=== PATIENT | female | born 2005 | race Caucasian/White ===

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

== ENCOUNTER 2023-02-11 22:15 | Emergency (ER) | payer MEDICAID ==
[~2023-02-11] VITALS: Ht 162.6 cm; Wt 76.9 kg
[~2023-02-11 22:15] MED LIST changes: +TOPUD MT
[2023-02-11] MEDS ORDERED: IBUPROFEN 600MG TABLET PO ONE (23:30)
[2023-02-11] MEDS ORDERED: NAPR500T7 MT (23:31)
[2023-02-11 23:44] VITALS: BP 128/84
== END 2023-02-11 23:45 | disposition home or self-care (01) ==
LOC: ER 22:15
DX: R51.9 Headache, unspecified (principal); J45.909 Unspecified asthma, uncomplicated
CPT/HCPCS: 81025; 99282

== ENCOUNTER 2023-04-11 14:08 | Emergency (ER) | payer MEDICAID ==
[~2023-04-11] VITALS: Ht 162.6 cm; Wt 61.0 kg
[~2023-04-11 14:08] MED LIST changes: +NAPR500T7 MT
[2023-04-11 15:05] VITALS: BP 110/81; PULSE 79; RESP 18; TEMP 99
== END 2023-04-11 17:16 | disposition left against medical advice (07) ==
LOC: ER 14:08
DX: Z53.21 Procedure and treatment not carried out due to patient leaving prior to being seen by health care provider (principal)
CPT/HCPCS: 99281

== ENCOUNTER 2023-09-21 18:21 | Emergency (ER) | payer MEDICAID ==
[~2023-09-21] VITALS: Ht 160 cm; Wt 78.0 kg
[2023-09-21 18:28] VITALS: TEMP 98.9; O2SAT 97
[2023-09-21 19:15] VITALS: BP 107/71; PULSE 104
[2023-09-21] MEDS ORDERED: ONDANSETRON HCL 4MG TABLET PO ONE (19:15)
[2023-09-21] MEDS ORDERED: IBUPROFEN 400MG TABLET PO ONE (19:15)
[2023-09-21] MEDS ORDERED: ACETAMINOPHEN 325MG TABLET PO ONE (19:15)
[2023-09-21] MEDS ORDERED: TOPUD PO (19:50)
[2023-09-21] MEDS ORDERED: ONDA4TAB50 PO (19:50)
== END 2023-09-21 20:35 | disposition home or self-care (01) ==
LOC: ER 18:21
DX: B34.9 Viral infection, unspecified (principal); R51.9 Headache, unspecified; R11.2 Nausea with vomiting, unspecified; R06.00 Dyspnea, unspecified; Z20.822 Contact with and (suspected) exposure to COVID-19
CPT/HCPCS: 99284; 71045; 87426; 87804 ×2; Q0162; C9803

== ENCOUNTER 2023-09-23 22:08 | Emergency (ER) | payer MEDICAID ==
[~2023-09-23] VITALS: Ht 160 cm; Wt 73.0 kg
[~2023-09-23 22:08] MED LIST changes: +ONDA4TAB50 PO; +TOPUD PO
[2023-09-23 22:32] VITALS: O2SAT 98
[2023-09-23 23:01] LABS: BASOPHILS % 0.7 % (0.0-2.0); EOSINOPHILS % 0.6 % (0.0-5.0); HEMATOCRIT. 41.2 % (36.0-48.0); LYMPHOCYTES % 18.3 % (20.0-50.0); MEAN CORPUSCULAR HEMOGLOBIN 30.3 pg (28.0-32.0); MEAN PLATELET VOLUME 8.6 fl (7.4-10.4); MONOCYTES % 10.3 % (2.0-8.0); NEUTROPHILS % 70.1 % (40.0-76.0); PLATELET 358 x1000/uL (130-400); RED BLOOD CELL COUNT 4.63 mill/uL (4.2-5.4); RED CELL DISTRIBUTION WIDTH 13.6 % (11.6-14.6); WHITE BLOOD COUNT 9.8 x1000/uL (4.5-11.0)
[2023-09-23 23:19] LABS: ALANINE AMINOTRANSFERASE 12 IU/L (10-49); ASPARTATE AMINOTRANSFERASE 17 IU/L (<34); BILIRUBIN TOTAL 0.5 mg/dL (0.1-1.0); CALCIUM 9.7 mg/dL (8.7-10.4); CARBON DIOXIDE 25 mEq/L (21-32); CHLORIDE 100 mEq/L (98-107); CREATININE 0.6 mg/dL (0.6-1.0); GLUCOSE 91 mg/dL (70-105); POTASSIUM 3.5 mEq/L (3.5-5.1); PROTEIN TOTAL 7.3 g/dL (6.0-8.3); SODIUM 135 mEq/L (136-145); UREA NITROGEN BLOOD 7 mg/dL (9-23)
[2023-09-24] MEDS ORDERED: ONDANSETRON HCL 4MG/2ML INJ IV NR (04:00)
[2023-09-24] MEDS ORDERED: SODIUM CHLORIDE 0.9% 1,000 ML IV NR (04:00)
[2023-09-24] MEDS ORDERED: KETOROLAC 15MG/ML VIAL IV NR (04:00)
[2023-09-24] MEDS ORDERED: AZITHROMYCIN 500 MG TABLET PO ONE (04:30)
[2023-09-24] MEDS ORDERED: DEXAMETHASONE 10 MG/ML VIAL IV ONE (04:30)
[2023-09-24] MEDS ORDERED: AZIT250T12 MT (05:52)
[2023-09-24] MEDS ORDERED: ONDA4TAB50 MT (05:52)
[2023-09-24] MEDS ORDERED: MED4 MT (05:52)
[2023-09-24] MEDS ORDERED: NAPR-1129 MT (05:52)
[2023-09-24 06:08] LABS: CLARITY URINE CLEAR (CLEAR); COLOR URINE YELLOW (YELLOW)
[2023-09-24 06:09] LABS: GLUCOSE URINE NEGATIVE (NEGATIVE); PROTEIN URINE NEGATIVE (NEGATIVE)
[2023-09-24 06:10] LABS: KETONES URINE 4+ (NEGATIVE); NITRITE URINE NEGATIVE (NEGATIVE); OCCULT BLOOD URINE NEGATIVE (NEGATIVE)
[2023-09-24 06:12] LABS: LEUKOCYTE ESTERASE URINE NEGATIVE (NEGATIVE)
[2023-09-24 07:12] VITALS: BP 112/76; PULSE 96; RESP 18; TEMP 98.3
== END 2023-09-24 07:34 | disposition home or self-care (01) ==
LOC: ER 22:08
DX: J02.0 Streptococcal pharyngitis (principal); J45.909 Unspecified asthma, uncomplicated; G43.909 Migraine, unspecified, not intractable, without status migrainosus; Z79.899 Other long term (current) drug therapy
CPT/HCPCS: 99284; 80053; 81003; 81025; 83690; 85025; 36415; 96374; 96375; 96361; J1100; J1885; J2405

== ENCOUNTER 2023-09-28 08:43 | Emergency (ER) | payer MEDICAID ==
[~2023-09-28] VITALS: Ht 162.6 cm; Wt 72.6 kg
[~2023-09-28 08:43] MED LIST changes: +AZIT250T12 MT; +MED4 MT; +NAPR-1129 MT; +ONDA4TAB50 MT
[2023-09-28 09:12] VITALS: BP 106/62; O2SAT 99
[2023-09-28] MEDS ORDERED: IBUP-2028 MT (11:09)
[2023-09-28 11:43] VITALS: PULSE 72; RESP 20; TEMP 98.2
== END 2023-09-28 11:44 | disposition home or self-care (01) ==
LOC: ER 09:05
DX: S63.613A Unspecified sprain of left middle finger, initial encounter (principal); J45.909 Unspecified asthma, uncomplicated; G43.909 Migraine, unspecified, not intractable, without status migrainosus; W18.2XXA Fall in (into) shower or empty bathtub, initial encounter; Y93.89 Activity, other specified; Y92.89 Other specified places as the place of occurrence of the external cause; Y99.8 Other external cause status
CPT/HCPCS: 73130; 73140; 99284

== ENCOUNTER 2023-10-02 11:00 | Emergency (ER) | payer MEDICAID ==
[~2023-10-02] VITALS: Ht 162.6 cm; Wt 72.6 kg
[~2023-10-02 11:00] MED LIST changes: +IBUP-2028 MT
[2023-10-02 11:05] VITALS: BP 115/74; O2SAT 99
[2023-10-02 12:35] VITALS: PULSE 88; RESP 14; TEMP 98.1
== END 2023-10-02 12:38 | disposition home or self-care (01) ==
LOC: ER 11:00
DX: M79.645 Pain in left finger(s) (principal)
CPT/HCPCS: 73140; 99283

== ENCOUNTER 2023-10-16 06:02 | Emergency (ER) | payer MEDICAID ==
[~2023-10-16] VITALS: Ht 160 cm; Wt 73.0 kg
[2023-10-16 06:15] VITALS: O2SAT 98
[2023-10-16] MEDS ORDERED: KETOROLAC 60MG/2ML VIAL IM STA (10:31)
[2023-10-16] MEDS ORDERED: ONDANSETRON HCL 4MG/2ML INJ IM STA (10:31)
[2023-10-16] MEDS ORDERED: DEXAMETHASONE 10 MG/ML VIAL IM ONE (10:45)
[2023-10-16] MEDS ORDERED: PENICILLIN G BENZATHINE 1,200,000 UNITS/2ML SYR IM ONE (10:45)
[2023-10-16] MEDS ORDERED: DEXAMETHASONE 10 MG/ML VIAL IM NR (12:30)
[2023-10-16] MEDS ORDERED: KETOROLAC 60MG/2ML VIAL IM NR (12:30)
[2023-10-16] MEDS ORDERED: ONDANSETRON HCL 4MG/2ML INJ IM NR (12:30)
[2023-10-16] MEDS ORDERED: IBUP-2029 MT (13:33)
[2023-10-16] MEDS ORDERED: ONDA4TAB11 PO (13:33)
[2023-10-16] MEDS ORDERED: AMOX-494 MT (13:33)
[2023-10-16 14:08] VITALS: BP 119/65; PULSE 114; RESP 18; TEMP 99.1
== END 2023-10-16 14:23 | disposition home or self-care (01) ==
LOC: ER 06:02
DX: J03.90 Acute tonsillitis, unspecified (principal); J45.909 Unspecified asthma, uncomplicated
CPT/HCPCS: 87430; 87070; 96372; 99284; J1100; J1885; J2405; J0561; Z7610

== ENCOUNTER 2024-05-17 01:13 | Emergency (ER) | payer MEDICAID ==
[~2024-05-17] VITALS: Ht 162.6 cm; Wt 70.0 kg
[~2024-05-17 01:13] MED LIST changes: +AMOX-494 MT; +IBUP-2029 MT; +ONDA4TAB11 PO
[2024-05-17 01:33] VITALS: O2SAT 97
[2024-05-17 01:42] LABS: BASOPHILS % 0.9 % (0.0-2.0); EOSINOPHILS % 4.1 % (0.0-5.0); HEMATOCRIT. 40.9 % (36.0-48.0); HEMOGLOBIN. 13.7 g/dL (12.0-16.0); LYMPHOCYTES % 18.9 % (20.0-50.0); MEAN CORPUSCULAR HEMOGLOBIN 30.5 pg (28.0-32.0); MEAN CORPUSCULAR HGB CONC 33.6 g/dL (31.0-37.0); MEAN CORPUSCULAR VOLUME 90.7 fL (81.0-99.0); MEAN PLATELET VOLUME 9.1 fl (7.4-10.4); MONOCYTES % 11.4 % (2.0-8.0); NEUTROPHILS % 64.7 % (40.0-76.0); PLATELET 253 x1000/uL (130-400); RED CELL DISTRIBUTION WIDTH 13.9 % (11.6-14.6); WHITE BLOOD COUNT 5.9 x1000/uL (4.5-11.0)
[2024-05-17 01:46] LABS: CHLORIDE 104 mEq/L (98-107); SODIUM 138 mEq/L (136-145)
[2024-05-17 01:47] LABS: CALCIUM 9.5 mg/dL (8.7-10.4); CARBON DIOXIDE 26 mEq/L (21-32)
[2024-05-17 01:52] LABS: CREATININE 0.7 mg/dL (0.6-1.0); GLUCOSE 93 mg/dL (70-105); UREA NITROGEN BLOOD 9 mg/dL (9-23)
[2024-05-17 01:54] LABS: ALANINE AMINOTRANSFERASE 26 IU/L (10-49); ALBUMIN 5.1 g/dL (3.2-4.8); ASPARTATE AMINOTRANSFERASE 27 IU/L (<34); BILIRUBIN DIRECT 0.2 mg/dL (<=3.0); BILIRUBIN TOTAL 0.4 mg/dL (0.1-1.0); PROTEIN TOTAL 7.1 g/dL (6.0-8.3)
[2024-05-17 02:12] LABS: CLARITY URINE CLOUDY (CLEAR); COLOR URINE DARK YELLOW (YELLOW); GLUCOSE URINE NEGATIVE (NEGATIVE); KETONES URINE 3+ (NEGATIVE); LEUKOCYTE ESTERASE URINE 2+ (NEGATIVE); NITRITE URINE NEGATIVE (NEGATIVE); OCCULT BLOOD URINE NEGATIVE (NEGATIVE); PROTEIN URINE TRACE (NEGATIVE); SPECIFIC GRAVITY URINE 1.028 (1.005-1.030)
[2024-05-17 02:45] LABS: SQUAMOUS EPITHELIAL CELL URINE 1+ /lpf (RARE/1+)
[2024-05-17 02:51] LABS: BACTERIA URINE 3+
[2024-05-17] MEDS: ONDANSETRON HCL 4MG/2ML INJ IM ONE (08:14)
[2024-05-17] MEDS ORDERED: ONDA4TAB50 MT (08:57)
[2024-05-17 09:02] VITALS: BP 128/71; PULSE 88; RESP 16; TEMP 98.8
== END 2024-05-17 09:03 | disposition home or self-care (01) ==
LOC: ER 01:13
DX: K52.9 Noninfective gastroenteritis and colitis, unspecified (principal); J45.909 Unspecified asthma, uncomplicated; Z79.899 Other long term (current) drug therapy
CPT/HCPCS: 99283; 80053; 81003; 81025; 83690; 85025; 36415; 96372; 80076; J2405

== ENCOUNTER 2024-08-24 16:27 | Emergency (ER) | payer MEDICAID ==
[~2024-08-24] VITALS: Ht 162.6 cm; Wt 73.0 kg
[~2024-08-24 16:27] MED LIST changes: -MED4 MT; +METH4TAB95 MT; +ONDA-239 PO; -ONDA4TAB11 PO
[2024-08-24 16:46] VITALS: O2SAT 100
[2024-08-24 18:33] LABS: BASOPHILS % 0.6 % (0.0-2.0); EOSINOPHILS % 2.6 % (0.0-5.0); HEMATOCRIT. 39.3 % (36.0-48.0); HEMOGLOBIN. 13.4 g/dL (12.0-16.0); LYMPHOCYTES % 19.4 % (20.0-50.0); MEAN CORPUSCULAR HEMOGLOBIN 30.9 pg (28.0-32.0); MEAN CORPUSCULAR VOLUME 90.9 fL (81.0-99.0); MEAN PLATELET VOLUME 9.1 fl (7.4-10.4); MONOCYTES % 8.7 % (2.0-8.0); NEUTROPHILS % 68.7 % (40.0-76.0); PLATELET 302 x1000/uL (130-400); RED BLOOD CELL COUNT 4.33 mill/uL (4.2-5.4); RED CELL DISTRIBUTION WIDTH 13.7 % (11.6-14.6); WHITE BLOOD COUNT 6.3 x1000/uL (4.5-11.0)
[2024-08-24 18:37] LABS: CLARITY URINE CLOUDY (CLEAR); COLOR URINE YELLOW (YELLOW); GLUCOSE URINE NEGATIVE (NEGATIVE); KETONES URINE NEGATIVE (NEGATIVE); LEUKOCYTE ESTERASE URINE 1+ (NEGATIVE); NITRITE URINE NEGATIVE (NEGATIVE); OCCULT BLOOD URINE NEGATIVE (NEGATIVE); PH URINE 6.5 (4.5-8.0); PROTEIN URINE TRACE (NEGATIVE); SPECIFIC GRAVITY URINE 1.022 (1.005-1.030); UROBILINOGEN URINE 0.2 E.U./dL (0.2-1.0)
[2024-08-24 18:38] LABS: CHLORIDE 106 mEq/L (98-107); POTASSIUM 4.3 mEq/L (3.5-5.1); SODIUM 139 mEq/L (136-145)
[2024-08-24 18:39] LABS: CALCIUM 9.8 mg/dL (8.7-10.4); CARBON DIOXIDE 26 mEq/L (21-32)
[2024-08-24 18:44] LABS: CREATININE 0.6 mg/dL (0.6-1.0); GLUCOSE 92 mg/dL (70-105); UREA NITROGEN BLOOD 6 mg/dL (9-23)
[2024-08-24 18:54] LABS: INR 0.9; PROTHROMBIN TIME 10.4 sec (9.6-11.0)
[2024-08-24 19:08] LABS: BACTERIA URINE 3+; RBC URINE 0-2 /hpf (0-2); SQUAMOUS EPITHELIAL CELL URINE 2+ /lpf (RARE/1+)
[2024-08-24 19:25] LABS: B-HCG QUANTITATIVE 133762 mIU/mL (<3)
[2024-08-24] MEDS ORDERED: CEPH500C2 MT (22:22)
[2024-08-24 22:45] VITALS: BP 116/68; PULSE 77; RESP 16; TEMP 37.00296; O2SAT 100
== END 2024-08-24 22:46 | disposition home or self-care (01) ==
LOC: ER 16:27
DX: O23.41 Unspecified infection of urinary tract in pregnancy, first trimester (principal); O26.891 Other specified pregnancy related conditions, first trimester; O99.511 Diseases of the respiratory system complicating pregnancy, first trimester; J45.909 Unspecified asthma, uncomplicated; Z3A.01 Less than 8 weeks gestation of pregnancy; Z79.899 Other long term (current) drug therapy
CPT/HCPCS: 36415; 76801; 80048; 81003; 84702; 85025; 93005; 99284

== ENCOUNTER 2024-12-02 16:54 | Emergency (ER) | payer MEDICAID ==
[~2024-12-02] VITALS: Ht 154.9 cm; Wt 75.0 kg
[~2024-12-02 16:54] MED LIST changes: +CEPH500C2 MT; +NAPR-1486 MT; -NAPR500T7 MT
[2024-12-02 17:52] VITALS: TEMP 36.9; O2SAT 100
[2024-12-02 19:44] LABS: CLARITY URINE CLOUDY (CLEAR); COLOR URINE YELLOW (YELLOW); GLUCOSE URINE NEGATIVE (NEGATIVE); KETONES URINE TRACE (NEGATIVE); LEUKOCYTE ESTERASE URINE 2+ (NEGATIVE); NITRITE URINE NEGATIVE (NEGATIVE); OCCULT BLOOD URINE NEGATIVE (NEGATIVE); PH URINE 6.5 (4.5-8.0); PROTEIN URINE TRACE (NEGATIVE); SPECIFIC GRAVITY URINE 1.024 (1.005-1.030)
[2024-12-02 20:01] LABS: BACTERIA URINE 1+; RBC URINE 0-2 /hpf (0-2); SQUAMOUS EPITHELIAL CELL URINE 2+ /lpf (RARE/1+)
[2024-12-02 20:02] LABS: CALCIUM OXALATE CRYSTALS URINE 1+ /lpf
[2024-12-02] MEDS ORDERED: CEPH500C2 MT (20:11)
[2024-12-02 21:15] VITALS: BP 101/62; PULSE 94; RESP 18; O2SAT 99
== END 2024-12-02 21:19 | disposition home or self-care (01) ==
LOC: ER 16:54
DX: O23.42 Unspecified infection of urinary tract in pregnancy, second trimester (principal); O26.892 Other specified pregnancy related conditions, second trimester; L08.9 Local infection of the skin and subcutaneous tissue, unspecified; Z79.624 Long term (current) use of inhibitors of nucleotide synthesis; Z3A.21 21 weeks gestation of pregnancy
CPT/HCPCS: 81003; 81025; 99283